=== PATIENT | male | born 1975 | race Caucasian/White ===

== ENCOUNTER 2021-11-19 17:33 | Emergency (ER) | payer SELFPAY ==
--- NOTE | 2021-11-19 17:46 | ED.EXTPRO ---
HPI - Extremity Problem General Chief complaint: Extremity Injury, Lower Stated complaint: left foot pain Time Seen by Provider: 11/19/21 17:48 Source: patient and RN notes reviewed Mode of arrival: ambulatory Limitations: no limitations History of Present Illness HPI Narrative: 46-year-old male presents to the [facility] with increased pain to the left great toe, joint pain and swelling, redness noted. Increased warmth. Patient reports that he was just seen recently at [facility] and diagnosed with gout. Has had increased alcohol intake, beer, and a very poor diet. Does have a history of gout. Patient was prescribed colchicine, finished along with taking naproxen patient states that he is out of the medication but had an increased flare. Currently working at the [employer] 7 days a week 12-hour days and has no time to get off his feet. Related Data Allergies Allergy/AdvReac Type Severity Reaction Status Date / Time No Known Allergies Allergy Verified 11/19/21 17:55 Review of Systems Review of Systems: All systems reviewed & are unremarkable except as noted in HPI and below Constitutional: Constitutional: Reports no additional constitutional complaints Eyes: Eyes: Reports no additional eye complaints ENT: Reports system reviewed and no additional complaints, except as documented Cardiovascular: Cardiovascular: Reports no additional cardiovascular complaints Respiratory: Respiratory: Reports no additional respiratory complaints Gastrointestinal: Gastrointestinal: Reports no additional gastrointestinal complaints Musculoskeletal: Musculoskeletal: Reports as per HPI, Reports arthralgias (Base of left great toe) and Reports joint swelling (Left great toe) Integumentary/Breasts: Skin/Breast: Reports system reviewed and no additional complaints, except as docu Neurologic: Reports system reviewed and no additional complaints, except as documented Psychiatric: Psychiatric: Reports no additional psychiatric complaints Allergic/Immunologic: Allergic/Immunologic: Reports no additional allergic/immunologic complaints PMFSH Past Medical History Medical History (Updated 11/19/21 @ 19:41 by Seema Pat APRN) Gout Comments At the time of my signature, I reviewed and agree with the nursing past medical, surgical, social, and family history. There is no relevant family history pertinent to the patient complaint. Exam Const: General: healthy appearing, no acute distress and alert Nutritional Appearance: well nourished Orientation/consciousness: patient oriented x3 Limitations: no limitations HENMT: Head: normal to inspection Ears: external ears normal Eyes: Pupils: Equal, round and reactive pupils present Neck: Neck: normal visual inspection, no lymphadenopathy and no meningeal signs Chest: Chest palpation & inspection: normal inspection of the chest Resp: Effort & Inspection: normal respiratory effort Auscultation: clear to auscultation bilaterally Cardio: Rate: regular rate Rhythm: regular rhythm Skin: General skin exam: normal color Rashes: no rashes Neuro: General: patient oriented x3, moves all extremities, no meningeal signs and no focal motor deficits Cranial nerves: Yes Equal, round and reactive pupils present Speech: normal speech Gait exam (Neuro): Normal gait present Extrem: Left lower extremity: foot Details: tenderness (Base of left great toe), toes with normal ROM, warmth Location: of the great toe Location: at the MTP joint and vascular exam Details: dorsalis pedis pulse present and normal capillary refill; no ecchymosis Psych: Appearance: grossly normal and well kempt Mental Status: mental status grossly normal Affect: normal affect Attitude: cooperative Thought content: Yes Normal thought content present Course Course Emergency Course: Discharge instructions reviewed with patient, as well as provided in writing per nursing staff. The instructions also include specific and strict
[2021-11-19 17:47] VITALS: BP 146/92; PULSE 105; RESP 16; TEMP 36.9; O2SAT 99
== END 2021-11-19 18:05 | disposition home or self-care (01) ==
PROVIDERS: Emergency Provider Nurse Practitioner
DX: M10.9 Gout, unspecified (principal)
CPT/HCPCS: 99203; G0463